=== PATIENT | female | born 1985 | race Caucasian/White ===

== ENCOUNTER 2024-08-22 14:53 | Outpatient (CLI) | payer OTHER ==
[2024-08-22 15:15] VITALS: BP 111/58
== END 2024-08-22 15:48 | disposition home or self-care (01) ==
LOC: NST 14:53
PROVIDERS: ATTEND Obstetrics & Gynecology
DX: Z34.83 Encounter for supervision of other normal pregnancy, third trimester (principal)

== ENCOUNTER 2024-10-06 01:32 | Inpatient (IN) | payer OTHER ==
[~2024-10-06] VITALS: Ht 160 cm; Wt 69.4 kg
[2024-10-06 01:13] VITALS: BP 137/71
[2024-10-06] MEDS ORDERED: MORPHINE SULFATE 4 MG/ML CARTRIDGE IV PRN (01:45)
[2024-10-06] MEDS ORDERED: RINGERS SOLUTION,LACTATED 1,000 ML IV SCH (01:45)
[2024-10-06 02:00] LABS: URINE APPEARANCE Clear; URINE BILIRRUBIN Negative (NEGATIVE); URINE BLOOD Moderate; URINE COLOR Yellow; URINE KETONE 15 (NEGATIVE); URINE LEUKOCYTE Trace; URINE NITRATE Negative; URINE PROTEIN Trace (NEGATIVE)
[2024-10-06 02:03] LABS: URINE EPITHELIAL CELLS 23.9 uL (0.0-38.8); URINE RBC 156.1 uL (0.0-20.8); URINE WBC 41.7 uL (0.0-23.2)
[2024-10-06 02:37] LABS: ALBUMIN 3.1 gm/dL (3.4-5.0); BILIRUBIN TOTAL 0.39 mg/dL (0.3-1.2); CALCIUM 9.3 mg/dL (8.5-10.1); CREATININE SERUM 0.51 mg/dL (0.55-1.02); GFR 134.96; GLOBULINA 3.8 G/DL (2.4-3.5); POTASSIUM 4.14 mEq/L (3.5-5.1); TOTAL PROTEIN 6.9 gm/dL (6.4-8.2)
[2024-10-06 02:39] LABS: HEMATOCRIT 35.6 % (36.0-45.00); MEAN CELL VOLUME 94.4 fL (80.00-100.00); MEAN CORPUSCULAR HEMOGLOBIN 31.8 pg (27.00-32.0); MEAN CORPUSCULAR HGB CONC 33.7 g/dl (32.0-36.0); PLATELET COUNT 428 K/uL (150-450); RED BLOOD COUNT 3.77 M/uL (4.00-6.00); RED CELL DISTRIBUTION WIDTH 12.8 % (11.5-14.5)
[2024-10-06 02:40] LABS: URINE CAST 0.29 uL (0.0-1.40); URINE GLUCOSE 100 MG/DL (NEGATIVE)
[2024-10-06 02:58] LABS: INR < 0.93; PARTIAL THROMBOPLASTIN TIME 27.6 SECONDS (22.0-34.0); PROTHROMBIN TIME 10.2 SECONDS (9.0-11.5)
[2024-10-06] MEDS ORDERED: OXYTOCIN 20 UNITS/1000ML RL PIGGYBAG IV ONE (06:14)
[2024-10-06] MEDS ORDERED: CHLORHEXIDINE GLUCONATE 120 ML BOTTLE TOP ONE (06:14)
[2024-10-06] MEDS ORDERED: LIDOCAINE HCL 1% 10ML VIAL ONE (06:14)
[2024-10-06] MEDS ORDERED: ERYTHROMYCIN BASE OPHT 1GM EACH TUBE OP ONE (06:14)
[2024-10-06] MEDS ORDERED: CHLORHEXIDINE GLUCONATE 120 ML BOTTLE TOP SCH (07:15)
[2024-10-06] MEDS ORDERED: IBUprofen 400 MG TABLET PO PRN (07:15)
[2024-10-06] MEDS ORDERED: OXYTOCIN 1,000 ML IV SCH (07:15)
[2024-10-06 07:23] VITALS: BP 118/65
[2024-10-06 07:30] VITALS: BP 122/64
[2024-10-06 07:46] VITALS: BP 142/73
[2024-10-06 15:48] VITALS: BP 132/75
[2024-10-06 20:12] VITALS: BP 108/69
[2024-10-07] VITALS: BP 104/67
[2024-10-07 07:12] LABS: HEMATOCRIT 26.3 % (36.0-45.00); MEAN CELL VOLUME 93.3 fL (80.00-100.00); MEAN CORPUSCULAR HGB CONC 34.1 g/dl (32.0-36.0); PLATELET COUNT 353 K/uL (150-450); RED BLOOD COUNT 2.81 M/uL (4.00-6.00); RED CELL DISTRIBUTION WIDTH 12.8 % (11.5-14.5)
[2024-10-07 07:34] LABS: MEAN CORPUSCULAR HEMOGLOBIN 31.6 pg (27.00-32.0)
[2024-10-07 07:35] LABS: HEMOGLOBIN 8.9 g/dL (12.0-15.00)
[2024-10-07 08:00] VITALS: BP 110/73
[2024-10-07] MEDS ORDERED: IRON FUM,PS/FOLIC/BCOMP,C NO.9 1 CAP CAPSULE PO SCH (09:00)
[2024-10-07 16:14] VITALS: BP 109/73
[2024-10-07] MEDS ORDERED: DOCUSATE SODIUM 100MG CAP PO SCH (17:00)
[2024-10-08 00:45] VITALS: BP 111/63
[2024-10-08 08:50] VITALS: BP 108/67
== END 2024-10-08 13:07 | disposition home or self-care (01) | DRG 807 ==
LOC: OB/GYN 01:32 → LDR 01:32 → OB/GYN 08:10
PROVIDERS: ADMIT Obstetrics & Gynecology; ATTEND Obstetrics & Gynecology
PROC: 10E0XZZ Delivery of Products of Conception, External Approach (ICD-10-PCS; principal; 2024-10-06)
PROC: 0KQM0ZZ Repair Perineum Muscle, Open Approach (ICD-10-PCS; 2024-10-06)
PROC: 4A1HXCZ Monitoring of Products of Conception, Cardiac Rate, External Approach (ICD-10-PCS; 2024-10-06)
DX: O70.1 Second degree perineal laceration during delivery (principal); Z37.0 Single live birth; Z3A.37 37 weeks gestation of pregnancy